=== PATIENT | female | born 1990 | race Two or more races ===

== ENCOUNTER 2023-10-06 08:45 | Outpatient (CLI) | payer OTHER | END 2023-10-06 09:04 | disposition home or self-care (01) | LOC: RX STUDY 08:45 | PROVIDERS: ATTEND Obstetrics & Gynecology Obstetrics | DX: N97.1 Female infertility of tubal origin (principal) ==

== ENCOUNTER 2024-03-16 08:35 | Outpatient (CLI) | payer OTHER | END 2024-03-16 08:49 | disposition home or self-care (01) | LOC: SONOGRAMA 08:35 | PROVIDERS: ATTEND Obstetrics & Gynecology Obstetrics | DX: N39.3 Stress incontinence (female) (male) (principal) ==